=== PATIENT | male | born 1955 | race Caucasian/White ===

== ENCOUNTER → 2016-09-26 | Outpatient (CLI) | payer BC ==
[~2016-09-26] MED LIST: AMLO5TAB2 PO
[2016-09-26 10:33] LABS: ASPARTATE AMINO TRANSFERASE 10 U/L (15-37); BLOOD UREA NITROGEN 13 mg/dL (7-18)
[2016-09-26 12:11] LABS: HIV 1&2 ANTIBODY SCREEN Nonreactive (Nonreactive); HIV-1 p24 ANTIGEN Nonreactive (Nonreactive)
[2016-09-26 14:08] LABS: HEPATITIS C VIRUS ANTIBODY Nonreactive (Nonreactive)
== END | disposition home or self-care (01) ==
LOC: STAR 09:09
PROVIDERS: ATTEND Orthopaedic Surgery Orthopaedic Surgery of the Spine
DX: Z01.818 Encounter for other preprocedural examination (principal); M46.1 Sacroiliitis, not elsewhere classified; J84.10 Pulmonary fibrosis, unspecified; R79.1 Abnormal coagulation profile
CPT/HCPCS: 36415; 71020; 80053; 80074; 81003; 85025; 85610; 85651; 85730; 86703; 87899; 93005; G0435